=== PATIENT | female | born 1950 | race Caucasian/White ===

== ENCOUNTER 2022-07-11 12:11 | Emergency (ER) | payer MEDICARE, SELFPAY ==
[2022-07-11 12:25] VITALS: BP 98/57; PULSE 71; RESP 16; TEMP 36; O2SAT 97
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
[2022-07-11 12:35] VITALS: BP 98/57; PULSE 71; RESP 16; TEMP 36; O2SAT 97
== END 2022-07-11 12:40 | disposition home or self-care (01) ==
PROVIDERS: Emergency Provider Nurse Practitioner; PCP Physician Assistant
DX: S09.90XA Unspecified injury of head, initial encounter (principal); W19.XXXA Unspecified fall, initial encounter
CPT/HCPCS: 99203; G0463